=== PATIENT | male | born 1995 | race Caucasian/White ===

== ENCOUNTER 2021-01-12 20:59 | Emergency (ER) | payer SELFPAY ==
[2021-01-12 21:36] VITALS: BP 112/56; PULSE 77; RESP 16; TEMP 37.1; O2SAT 99; BMI 22.8
--- NOTE | 2021-01-12 22:36 | PC.NURSE ---
PT CALLS OUT. STATES HEY IS ANYONE GOING TO COME? IT'S BEEN 15MINUTES. EXPLAINED TO PATIENT THAT THE DOCTOR WILL BE IN. HE IS WITH OTHER PATIENTS RIGHT NOW.
--- NOTE | 2021-01-12 22:56 | ED.SKABFB ---
HPI - Skin/Abscess/Foreign Bdy General Chief complaint: Skin/Abscess/Foreign Body Stated complaint: BUMP ON HEAD Time Seen by Provider: 01/12/21 22:54 Source: patient Mode of arrival: ambulatory Limitations: no limitations History of Present Illness HPI narrative: States lump to the crown of the head for past 1.5 yrs here in the past for same states this area is tender and uncomfortable. Onset (ago): year(s) Tetanus up to date: yes Location: head Severity: mild Pain Consistency: intermittent Relieving factors: none Exacerbating factors: none Context: none Associated symptoms: denies other symptoms Treatments prior to arrival: none Related Data Allergies Allergy/AdvReac Type Severity Reaction Status Date / Time No Known Allergies Allergy Verified 01/12/21 21:36 Review of Systems Review of Systems: Constitutional: No Weight loss, No Fever, No Chills, No Night Sweats, No Fatigue, No Malaise ENT/Mouth: No Hearing loss, No Ear Pain, No Nasal Congestion, No Sinus Pain, No Hoarseness, No sore throat, No Rhinorrhea, No Swallowing Difficulty Eyes: No Eye Pain, No Swelling, No Redness, No Foreign Body, No Discharge, No Vision Changes Cardiovascular: No Chest Pain, No SOB, No Dyspnea on Exertion, No Orthopnea, No Edema, No Palpitations Respiratory: No Cough, No Sputum, No Wheezing, No Smoke Exposure, No Dyspnea Gastrointestinal: No Nausea, No Vomiting, No Diarrhea, No Constipation, No abdominal Pain, No Hematochezia, No Melena Genitourinary: no irregular bleeding, No Dysuria, No Urinary Frequency, No Hematuria, No Urinary Incontinence, No Urgency, No Flank Pain, No Urinary Flow Changes, No Hesitancy Musculoskeletal: No joint pain, No Myalgias, No Joint Swelling Skin: No Skin Lesions, No rash Neuro: No Weakness, No Numbness, No Paresthesias, No Loss of Consciousness, No Dizziness, No Headache Psych: No Social Issues Heme/Lymph: No Bruising, No Bleeding,No Lymphadenopathy Endocrine: No Polyuria, No Polydipsia, No Temperature Intolerance Yes all other systems are reviewed and are negative [facility] Past Medical History Medical History No known health problems Social History Social History Advance Directives: No Advance Directives Information Provided: No Physical Exam Vital Signs: Vital Signs: Last Vital Signs Temp 98.7 F 01/12/21 21:36 Pulse 77 01/12/21 21:36 Resp 16 01/12/21 21:36 BP 112/56 L 01/12/21 21:36 Pulse Ox 99 01/12/21 21:36 Body Mass Index 22.8 Reviewed Const: General: cooperative and healthy appearing; No acute distress or intoxicated appearing Nutritional Appearance: average body habitus Orientation/consciousness: patient oriented x3 HENMT: Head: Yes normal to inspection Head images: 1. 0.5 cm meter slightly indurated area just below the scalp consistent with pilar cyst. No erythema, discharge, crepitus. Ears: hearing grossly normal bilaterally Neck: Neck: Yes normal visual inspection, No positive Brudzinski's sign, No positive Kernig's sign and No tender Thyroid: Thyroid normal Chest: Chest palpation & inspection: normal inspection of the chest Resp: Effort & Inspection: normal respiratory effort : General: Yes no CVA tenderness Back/Spine/Pelvis: Back: no CVA tenderness Skin: General skin exam: no rashes or lesions noted Neuro: General: patient oriented x3 Extrem: General: Yes normal to inspection Course Course Course Narrative: Will follow-up with general surgery for possible obstruction and biopsy. MDM - Skin/Abscess/Foreign Bdy Lab Data Labs: Lab Results 01/12/21 Range/Units 22:53 POC Glucose 101 (60-115) mg/dL Discharge Plan Discharge Clinical Impression: Pilar cyst Patient Disposition: Home, Self-Care Instructions: Cyst (ED) Additional Instructions: Follow-up with general surgery to have this extracted Follow-up with your primary care doctor as discussed The concerns since symptoms Thank you Referrals: Edgar Mcmanus MD [Physician] - 2 weeks Interventions: ED Discharge Assessment Last Done: 01/12/21 23:11 Discharge Date/Time: 01/12/21 23:12
[2021-01-12 22:57] LABS: Glucose, Whole Blood 101 mg/dL (60-115)
== END 2021-01-12 23:12 | disposition home or self-care (01) ==
PROVIDERS: Emergency Provider Internal Medicine
DX: L72.11 Pilar cyst (principal)
CPT/HCPCS: 82947; 99284

== ENCOUNTER 2022-07-21 23:54 | Emergency (ER) | payer SELFPAY ==
[2022-07-22 00:08] VITALS: BP 132/90; PULSE 70; RESP 18; TEMP 36.4; O2SAT 98; BMI 24.3
[2022-07-22 02:00] VITALS: BP 130/85; PULSE 58; RESP 16; TEMP 36.5; O2SAT 98
--- NOTE | 2022-07-22 02:11 | ED_ITS ---
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 Related Data Allergies Allergy/AdvReac Type Severity Reaction Status Date / Time No Known Allergies Allergy Verified 01/12/21 21:36 Review of Systems Review of Systems: All other systems are reviewed and are negative Constitutional: Reports as per HPI and Reports no additional constitutional complaints Eyes: Reports as per HPI and Reports no additional eye complaints Reports system reviewed and no additional complaints, except as documented Cardiovascular: Reports as per HPI and Reports no additional cardiovascular complaints Respiratory: Reports as per HPI and Reports no additional respiratory complaints Gastrointestinal: Reports as per HPI and Reports no additional gastrointestinal complaints Genitourinary: Reports no additional female genitourinary complaints Musculoskeletal: Reports no additional musculoskeletal complaints Skin/Breast: Reports system reviewed and no additional complaints, except as docu Psychiatric: Reports no additional psychiatric complaints Endocrine: Reports no additional endocrine complaints Hematologic/Lymphatic: Reports no additional hematologic/lymphatic complaints Allergic/Immunologic: Reports no additional allergic/immunologic complaints Reports system reviewed and no additional complaints, except as documented and Reports Abnormal speech present [facility] Past Medical History Medical History No known health problems Social History Social History Advance Directives: No Physical Exam ED Vital Signs: Vital Signs - 24 hr 07/22/22 00:08 07/22/22 02:00 Temperature 97.6 F 97.7 F Pulse Rate 70 58 Respiratory Rate 18 16 Blood Pressure 132/90 H 130/85 Pulse Oximetry 98 98 Oxygen Delivery Method Room Air Room Air BMI result Body Mass Index 24.3 Vital signs have been reviewed as appeared to be correct. Blood pressure normal. Heart rate normal. Respiration rate normal. Temperature normal. Oxygen saturation normal. Appearance: Alert. Oriented X3. No acute distress. Head: Normal external exam. Normocephalic. Atraumatic. No Monroe signs noted. No raccoon eyes noted Eyes: PERRLA. EOMI. Conjunctiva and sclera normal. Eyelids normal. ENT: TM's Normal. Pharynx normal. Uvula midline. Moist mucous membranes. No trismus noted. No drooling noted. No muffled voice noted. Neck: Normal inspection. Neck supple. FROM. No adenopathy. Thyroid Normal. No meningeal signs. No neck mass noted. CVS: Normal heart rate and rhythm. Heart sound normal. No murmurs noted. Pulses normal throughout. Respiratory: No respiratory distress. Painless inspiration. Breath sounds normal. No wheezes/rales/rhonchi noted. Chest nontender. No accessory muscle usage noted or decreased air movement noted. Abdomen: Soft and nontender. Bowel sounds normal in all 4 quadrants. No distention noted. No organomegaly noted. No visible injury noted. Back: No CVA tenderness. Full range of motion noted. Skin: Skin warm and dry. Normal skin color. Normal skin turgor. No rashes/lesions/lacerations noted. Extremities: Bilateral palms skin thickening with white discoloration of the skin Cranial nerve exam: II-XII are grossly intact No motor deficit. No sensory deficit. Reflexes normal. Course Course Course Narrative: Chemical dermatitis of both hands after using paint removed without a protective gloves, case discussed with poison control the only recommendation is soaking both hand in warm water for long time. Discharge Plan Discharge Clinical Impression: Chemical dermatitis Patient Disposition: Home, Self-Care Instructions: Chemical Skin Burn (ED) Additional Instructions: Soak both and in a warm water for as long as he can 3 times a day until both palms soften Referrals: Physician,Unknown J [Primary Care Provider] - Stand Alone Forms: Work/School Release
--- NOTE | 2022-07-22 02:35 | PC.NURSE ---
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 pt offered warm water and soap to wash hands in ED, pt declined.
== END 2022-07-22 02:51 | disposition home or self-care (01) ==
PROVIDERS: Emergency Provider Emergency Medicine
DX: L24.5 Irritant contact dermatitis due to other chemical products (principal)
CPT/HCPCS: 99282; 99283

== ENCOUNTER 2024-02-07 10:11 | Emergency (ER) | payer OTHER, SELFPAY ==
[2024-02-07 10:42] VITALS: BP 119/59; PULSE 81; RESP 18; TEMP 36.6; O2SAT 95; BMI 23.7
[2024-02-07 11:13] LABS: IDNOW Serial# 08D9AD1C; Strep A Nucleic Acid Positive (Negative)
--- NOTE | 2024-02-07 11:28 | ED_ITS ---
HPI - General Adult General Chief complaint: General Medical Stated complaint: Tonsil infection ? Time Seen by Provider: 02/07/24 11:28 Source: patient Mode of arrival: ambulatory Limitations: no limitations History of Present Illness ED Provider: Vicky Dwyer PA-C HPI narrative: Patient is a 29 year old assigned male at with no reported medical history presenting to the emergency department today with a sore throat. Patient states that over the last 3 days he has had a sore throat that is getting progressively worse. Patient denies any dizziness, lightheadedness, abdominal pain, nausea, vomiting, fever, chills, blurry vision, double vision, loss of vision, chest pain, difficulty breathing, shortness of breath, back pain, night sweats, pain with urination, increased urinary frequency, increased urinary urgency, blood in his urine or stool, syncope or a near syncopal episode, recent trauma or falls, bowel incontinence, bladder incontinence, bowel retention, bladder retention, or any other complaints at this time. Onset (ago): day(s) (3) Severity: mild Severity scale (1-10): 4 Quality: aching and dull Pain Consistency: constant Relieving factors: none Exacerbating factors: none Associated symptoms: denies other symptoms Treatments prior to arrival: none Related Data Previous Rx's ?Medication ?Instructions ?Recorded penicillin V potassium 500 mg 500 mg PO BID 10 days #20 tabs 02/07/24 tablet amoxicillin 875 mg-potassium 1 tab PO Q12H #20 tabs 02/08/24 clavulanate 125 mg tablet acetaminophen 500 mg tablet 500 mg PO Q6H PRN pain #30 tabs 02/09/24 (Tylenol Extra Strength) ibuprofen 600 mg tablet 600 mg PO Q6H PRN pain #30 tabs 02/09/24 Allergies Allergy/AdvReac Type Severity Reaction Status Date / Time No Known Allergies Allergy Verified 02/09/24 12:45 Review of Systems Constitutional: Constitutional: Reports no additional constitutional complaints, Denies chills, Denies fever(s) and Denies night sweats Eyes: Eyes: Reports no additional eye complaints, Denies blurry vision, Denies change in vision, Denies diplopia, Denies eye discharge, Denies loss of vision and Denies eye pain ENT: Denies dizziness and Reports sore throat Cardiovascular: Cardiovascular: Reports no additional cardiovascular complaints, Denies chest pain, Denies lightheadedness, Denies Loss of Consciousness and Denies dyspnea Respiratory: Respiratory: Reports no additional respiratory complaints and Denies dyspnea Gastrointestinal: Gastrointestinal: Reports no additional gastrointestinal complaints, Denies abdominal pain, Denies melena, Denies hematochezia, Denies change in bowel habits and Denies change in stool character Genitourinary: Genitourinary: Reports no additional male genitourinary complaints, Denies hematuria, Denies oliguria, Denies difficulty urinating, Denies dysuria, Denies urinary frequency, Denies urinary hesitancy, Denies u rinary incontinence and Denies urinary urgency Musculoskeletal: Musculoskeletal: Reports no additional musculoskeletal complaints, Denies numbness and Denies tingling Neurologic: Denies dizziness, Denies loss of vision, Denies numbness and Denies tingling Psychiatric: Psychiatric: Reports no additional psychiatric complaints Endocrine: Endocrine: Reports no additional endocrine complaints Hematologic/Lymphatic: Hematologic/Lymphatic: Reports no additional hematologic/lymphatic complaints Allergic/Immunologic: Allergic/Immunologic: Reports no additional allergic/immunologic complaints PMFSH Past Medical History Attestation statement: The following information was validated with the patient. Source: old records reviewed and nursing notes reviewed Medical History No known health problems Social History Social History Advance Directives: No Physical Exam ED Vital Signs: Vital Signs - 24 hr 02/07/24 10:42 02/07/24 11:33 Temperature 97.8 F 97.8 F Pulse Rate 81 81 Respiratory Rate 18 18 Blood Pressure 119/59 L 119/59 L Pulse Oximetry 95 97 Oxygen Delivery Method Room Air Room Air BMI result Body Mass Index 23.7 Const General: cooperative, no acute distress, alert and awake Nutritional Appearance: well nourished Orientation/consciousness: patient oriented x3 Limitations: no limitations HENMT Head: Yes normal to inspection and Yes atraumatic Ears: hearing grossly normal bilaterally and external ears normal General nose exam: Normal external nose present, no nasal discharge noted and no epistaxis Face and sinus: Yes normal facial exam, No abrasion and No laceration Mouth: Normal oral and palatal mucosa present, no drooling and no muffled voice Throat: Yes uvula midline and Yes abnormal tonsil (bilateral erythema and swelling) Eyes General: appearance normal, both eyes and all related structures Periorbital: periorbital findings normal Eyelids: Yes eyelids normal Conjunctivae: conjunctivae normal Pupils: Equal, round and reactive pupils present EOM: EOMs intact bilaterally Neck Neck: Yes normal visual inspection, Yes full ROM and Yes no lymphadenopathy Chest Chest palpation & inspection: normal inspection of the chest Resp Effort & Inspection: normal respiratory effort and able to speak in complete sentences GI Inspection: Yes normal to inspection Neuro General: patient oriented x3 and moves all extremities Cranial nerves: Yes Equal, round and reactive pupils present Cognition (Neuro): normal cognition Motor exam (neuro): 5/5 motor strength present throughout Sensory Exam: Normal double simultaneous stimulation for sensation Coordination: [id number] test normal Extrem General: Yes normal to inspection, Yes full ROM and Yes capillary refill normal Psych Appearance: grossly normal Mental Status: mental status grossly normal Affect: normal affect Attitude: cooperative Thought process: Normal thought process present Thought content: Normal thought content present Insight: Good insight present (Psych) Medications Administered Discontinued Medications Generic Name Dose Route Start Last Admin Trade Name Freq PRN Reason Stop Dose Admin Dexamethasone Sodium Phosphate 10 mg 02/07/24 11:28 02/07/24 11:33 Dexamethasone Sod Phosphate 10 Mg/Ml Vial PO 02/07/24 11:29 10 mg ONCE ONE Administration Medical Decision Making Medical Decision Making [facility] Narrative: Patient is a 29 year old assigned male at with no reported medical history presenting to the emergency department today with a sore throat. Patient's physical exam showed bilateral tonsilar swelling and erythema but the uvula appeared normal and no evidence of a SUPERVISOR FILTRATION. Patient's strep test was positive. I explained my physical exam findings as well as all test results to the patient. I answered all questions asked by the patient. Patient received PO Decadron while in the department which he stated helped his symptoms significantly. I stressed the importance of the patient taking his medication as prescribed. I stressed the importance of the patient following up with his primary care provider. I stressed the importance of the patient returning to the emergency department immediately if his symptoms were to worsen or if he were to develop any dizziness, shortness of breath, difficulty breathing, chest pain, blurry vision, loss of vision, nausea, vomiting, abdominal pain, fever, chills, back pain, or any other complaints. Patient verbalized agreement and understanding with this treatment plan and discharge. Differential Diagnosis Differential Diagnoses: The differential diagnosis associated with the presentation includes Strep pharyngitis Sore throat Admission/Observation Consideration of admission/observation: Escalation of care including admission/observation considered Patient would have been admitted to the hospital had his work up had any findings where hospital admission was appropriate and his clinical presentation warranted hospital admission. Lab Data [facility] Lab Attestation statement: I reviewed the patient's lab results. My interpretation of these results are in the [facility] Rationale portion of this note. Labs: Lab Results 02/07/24 Range/Units 11:01 S. pyogenes GrpA JEIMY Positive A (Negative) Prescription Management I considered prescription management with: Antibiotic (patient prescribed an antibiotic for his strep pharyngitis) Critical Care Time Critical Care Time Critical Care Time: No Discharge Plan Discharge Clinical Impression: Strep pharyngitis Patient Disposition: Home, Self-Care Instructions: Strep Throat (DC) Additional Instructions: Follow up with your primary care provider. Return to the emergency department immediately if your symptoms worsen or if you develop any dizziness, shortness of breath, difficulty breathing, chest pain, blurry vision, loss of vision, nausea, vomiting, abdominal pain, fever, chills, back pain, or any other complaints. Prescriptions: New penicillin V potassium 500 mg tablet 500 mg PO BID 10 Days Qty: 20 0RF No Action amoxicillin-pot clavulanate 875-125 mg tablet 1 tab PO Q12H Qty: 20 0RF ibuprofen 600 mg tablet 600 mg PO Q6H PRN (Reason: pain) Qty: 30 0RF acetaminophen [Tylenol Extra Strength] 500 mg tablet 500 mg PO Q6H PRN (Reason: pain) Qty: 30 0RF Referrals: [facility] [place] Family Medicine [Provider Group] (Call to establish and follow up with a primary care provider. If you already have a primary care provider, please follow up with them.) [facility] [place] Primary CareMelissa [Provider Group] [facility] [place] Primary CareBrenda [Provider Group] Stand Alone Forms: Work/School Release Interventions: ED Discharge Assessment Last Done: 02/07/24 11:33 Discharge Date/Time: 02/07/24 11:34 Print Language: Cymraes
[2024-02-07 11:33] VITALS: BP 119/59; PULSE 81; RESP 18; TEMP 36.6; O2SAT 97
[2024-02-07] MEDS: dexAMETHasone sod phosphate 10 MG/ML VIAL PO (11:33)
--- NOTE | 2024-02-07 11:35 | PC.NURSE ---
Eval by ZULEMA, medicated per NOV by nupur flopatrick RN, cleared for dc home.
== END 2024-02-07 11:34 | disposition home or self-care (01) ==
PROVIDERS: Emergency Provider Emergency Medicine
DX: J02.0 Streptococcal pharyngitis (principal)
CPT/HCPCS: 87651; 99282; 99283; J1100

== ENCOUNTER 2024-02-08 18:04 | Emergency (ER) | payer OTHER, SELFPAY ==
--- NOTE | ~2024-02-08 | CT_ITS ---
EXAMINATION: CT SOFT TISSUE NECK WITH CONTRAST CLINICAL INFORMATION: Sore throat. COMPARISON: No relevant prior imaging. TECHNIQUE: Following the intravenous administration of 100 mL of Omnipaque 350 intravenous contrast, helical imaging was performed in the axial plane with generation of coronal and sagittal reformatted images. This CT examination was performed using dose optimization techniques as appropriate, variously including the following: *Automated exposure control *Adjustment of mA and/or kV according to patient size (this includes techniques or standardized protocols for targeted exams where dose is matched to indication/reason for exam; i.e. extremities or head) *Use of iterative reconstruction technique DLP: 412 mGy-cm FINDINGS: There is a peripherally enhancing fluid collection located within the left parapharyngeal space measuring approximately 2.5 cm in maximal transaxial dimension best visualized on axial image 43 of 128 series 2. There are a few symmetrically enlarged enhancing level II cervical lymph nodes, none of which demonstrate evidence of suppuration. There is symmetric enhancement within the internal jugular veins with no evidence of septic thrombophlebitis. Retromaxillary fat is preserved. Living Skills Advisor spaces are symmetric. The parotid and submandibular glands are normal. The tongue base and epiglottis are normal. Preepiglottic fat is preserved. Glottic and subglottic airways are patent. The thyroid gland is normal and the remainder of the visualized visceral soft tissues are normal. Lung apices are clear. The aortic arch apex is normal. Cervical carotid and vertebral arteries are grossly patent. No acute osseous finding. Specifically no worrisome lytic or blastic osseous lesion. Grossly no spinal canal compromise. The skull base is intact. No mastoid middle ear effusion. There are a few small retention cysts within the left maxillary sinus. Otherwise no active paranasal sinus disease. Limited visualization of the intracranial anatomy reveals no abnormal finding. Specifically no midline shift or hydrocephalus. CT/CT soft tissue neck w IV con IMPRESSION: There is a left peritonsillar abscess measuring approximately 2.5 cm in maximal transaxial dimension. There are a few symmetrically enlarged enhancing level II cervical lymph nodes, none of which demonstrate evidence of suppuration. No evidence of septic thrombophlebitis.
[2024-02-08 18:13] VITALS: BP 120/78; PULSE 76; RESP 16; TEMP 36.8; O2SAT 99; BMI 24.3
--- NOTE | 2024-02-08 18:13 | ED_ITS ---
HPI - General Adult General Chief complaint: Upper Respiratory Symptoms Stated complaint: throat pain Time Seen by Provider: 02/08/24 18:26 Source: patient, RN notes reviewed and old records reviewed Mode of arrival: ambulatory Limitations: no limitations History of Present Illness ED Provider: Demario JEFFERY narrative: 29-year-old male presents for evaluation of a sore throat Patient was seen here yesterday and diagnosed with strep pharyngitis. He was started on penicillin V potassium He reports being compliant with the medication. He states immediately after leaving his symptoms had improved somewhat but states that now he is having worsening pain with swallowing He is still able to drink and reports that he is able to eat popsicles Patient reports he gets recurrent throat infections about once per year He reports he is seen ENT in the past and they told him they would not remove his tonsils until ?I have 3 or 4 infections per year. ? Related Data Previous Rx's ?Medication ?Instructions ?Recorded penicillin V potassium 500 mg 500 mg PO BID 10 days #20 tabs 02/07/24 tablet amoxicillin 875 mg-potassium 1 tab PO Q12H #20 tabs 02/08/24 clavulanate 125 mg tablet Allergies Allergy/AdvReac Type Severity Reaction Status Date / Time No Known Allergies Allergy Verified 02/08/24 18:16 Review of Systems 2 Constitutional: Constitutional: Denies body ache(s), Denies chills, Denies fever(s) and Denies headache(s) ENT: Denies headache(s), Reports odynophagia, Reports sore throat, Denies throat swelling and Denies tongue swelling Cardiovascular: Cardiovascular: Denies chest pain and Denies dyspnea Respiratory: Respiratory: Denies cough and Denies dyspnea Gastrointestinal: Gastrointestinal: Denies abdominal pain, Reports odynophagia and Denies vomiting Musculoskeletal: Musculoskeletal: Denies back pain Integumentary/Breasts: Skin/Breast: Denies rash Neurologic: Denies headache(s) Allergic/Immunologic: Allergic/Immunologic: Denies throat swelling and Denies tongue swelling PMFSH Past Medical History Medical History No known health problems Social History Social History Advance Directives: No Advance Directives Information Provided: No Physical Exam ED Vital Signs: Vital Signs - 24 hr 02/08/24 18:13 02/08/24 19:26 02/08/24 21:39 Temperature 98.3 F 99.0 F 97.9 F Pulse Rate 76 64 64 Respiratory Rate 16 16 16 Blood Pressure 120/78 101/60 115/67 Pulse Oximetry 99 97 97 Oxygen Delivery Method Room Air Room Air Room Air BMI result Body Mass Index 24.3 Const General: healthy appearing, comfortable, no acute distress, alert and awake Nutritional Appearance: well nourished Orientation/consciousness: patient oriented x3 HENMT Other: Patient has bilateral marked tonsillar hypertrophy with exudates left greater than right. There was no obvious peritonsillar abscess Head: Yes normocephalic and Yes atraumatic Eyes Eyelids: Yes eyelids normal Conjunctivae: conjunctivae normal Sclerae: sclerae normal Corneas: corneas normal Pupils: Equal, round and reactive pupils present EOM: EOMs intact bilaterally Neck Neck: Yes full ROM Resp Effort & Inspection: normal respiratory effort, able to speak in complete sentences, no audible wheezes and not labored Auscultation: clear to auscultation bilaterally GI Inspection: No distended Palpation (GI): Soft to palpation, not firm, nontender, no guarding and not rigid Skin General skin exam: elasticity normal Neuro General: patient oriented x3 Cranial nerves: Yes Equal, round and reactive pupils present and Yes Bilaterally intact EOM present Cognition (Neuro): normal cognition Extrem Other: Moving all extremities well without any obvious deformities Course Course Course Narrative: This is an RME done by MILTON Paz: Additional HPI, ROS, PE not included below will be deferred to primary provider. 29 year old male who denies any pmh presents with worsening throat pain. Patient was seen in the ED yesterday for strep pharyngitis and prescribed Penicililin and states the pain has not subsided. States swelling initially decreased and then got worse. Changes in voice, difficulty in swallowing, difficulty eating. Strep positive yesterday. Appearance: Alert.? Oriented X3.? No acute cardiopulmonary distress distress.? Head: Normocephalic, atraumatic, no step-offs or deformities ENT: Swollen tonsils. Uvula midline. Very scant exudate to the right tonsil.?External ears normal, TMs normal bilaterally and EAC's normal. No pain with manipulation of external ears bilaterally. No mastoid tenderness. Neck: Normal inspection.? Neck supple.? CVS: Pulses normal.? Respiratory: No respiratory distress.? Abdomen: Soft and nontender.? Skin: ? Normal skin color. Neuro: Oriented X 3.? No motor deficit.? No sensory deficit. Reevaluation(s) Reevaluation #1: Left peritonsillar abscess was drained with about 3 cc of purulent aspirate removed. The patient tolerated the procedure well, there were no complications. We will change the patient's antibiotic to Augmentin and he will be discharged to follow-up outpatient with Dr. Navarrete Time: 21:37 Medications Administered Discontinued Medications Generic Name Dose Route Start Last Admin Trade Name Freq PRN Reason Stop Dose Admin Dexamethasone Sodium Phosphate 10 mg 02/08/24 18:44 02/08/24 19:08 Dexamethasone Sod Phosphate 10 Mg/Ml Vial IVPUSH 02/08/24 18:45 10 mg ONCE ONE Administration Sodium Chloride 1,000 mls @ 999 mls/hr 02/08/24 18:45 02/08/24 20:14 Ns IV 02/08/24 19:45 Infused .Q1H1M HAYDEN Infusion Iohexol 85 ml 02/08/24 20:04 02/08/24 20:04 Iohexol 350 Mg/Ml 100 Ml Infus..Btl IV 02/08/24 20:05 85 ml ONCE ONE Administration Ketorolac Tromethamine 30 mg 02/08/24 18:44 02/08/24 19:08 Ketorolac Tromethamine 30 Mg/Ml Vial IVPUSH 02/08/24 18:45 30 mg ONCE ONE Administration Lidocaine HCl 15 ml 02/08/24 20:39 02/08/24 21:34 Lidocaine Hcl Viscous 2 % 15 Ml Solution MUCOUS MEM 02/08/24 20:40 15 ml ONCE ONE Administration Lidocaine HCl 5 ml 02/08/24 20:39 02/08/24 21:34 Lidocaine Hcl 1 % Mpf 5 Ml Vial INFILTRATI 02/08/24 20:40 5 ml ONCE ONE Administration Procedures Abscess I/D Site: other (Peritonsillar) Side (if applicable): left Local Anesthetic: lidocaine 1% Amount of anesthesia used (mL): 2 Technique: needle aspiration Amount of fluid expressed (mL): 3 Sent for culture/gram staining?: No Irrigation: No Medical Decision Making Medical Decision Making MDM Narrative: 29-year-old male presents for evaluation of sore throat, he was diagnosed with strep pharyngitis yesterday and has been compliant with his medications. Given the marked tonsillar hypertrophy, plan for CT soft tissue neck to evaluate for soft tissue abscess Differential Diagnosis Differential Diagnoses: The differential diagnosis associated with the presentation includes Pharyngitis Peritonsillar abscess Strep throat Mononucleosis Lab Data 02/08/24 19:34 02/08/24 19:34 Labs: Lab Results 02/08/24 Range/Units 19:34 WBC 15.4 H (4.8-10.8) X10*3/uL RBC 4.67 (4.60-5.80) X10*6/uL Hgb 14.7 (14.0-18.0) g/dl Hct 41.7 L (42.0-52.0) % MCV 89.3 (80.0-98.0) fL MCH 31.5 (27.0-33.0) pg MCHC 35.3 (31.0-36.0) g/dl RDW 11.6 (11.0-16.0) % Plt Count 273 (160-400) X10*3/uL MPV 8.5 L (9.4-12.4) fL Immature Gran % (Auto) 0.3 (0.0-0.4) % Neut % (Auto) 76.7 H (45-73) % Lymph % (Auto) 12.0 L (20-40) % [place] % (Auto) 10.2 (2-11) % Eos % (Auto) 0.5 (0-4) % Baso % (Auto) 0.3 (0-2) % Lymph # (Auto) 1.9 (1.2-4.9) X10*3/uL [place] # (Auto) 1.6 H (0.1-1.2) X10*3/uL Eos # (Auto) 0.1 (0.0-0.4) X10*3/uL Baso # (Auto) 0.0 (0.0-0.2) X10*3/uL Abs Immat Gran (auto) 0.05 H (0.00-0.03) X10*3/uL Absolute Neuts (auto) 11.8 H (2.0-8.3) x10*3/uL Absolute Nucleated RBC 0.000 (0.0-0.012) X10*3/uL Nucleated RBC % (auto) 0.0 (0.0-0.2) /100WBC Smear Tech's Comments VERIFIED Sodium 144 (135-145) mmol/L Potassium 3.6 (3.3-5.1) mmol/L Chloride 106 (96-108) mmol/L Carbon Dioxide 23 (22-29) mmol/L Anion Gap 19 (12-20) BUN 13 (9-16) mg/dL Creatinine 0.84 (0.5-1.4) mg/dL Estim Creat Clear Calc 126.6 Estimated GFR > 60 Random Glucose 105 (60-115) mg/dL Calcium 9.1 (8.4-10.2) mg/dL Monoscreen Negative (Negative) Discharge Plan Discharge Clinical Impression: Strep throat, Abscess, peritonsillar Patient Disposition: Home, Self-Care Instructions: Peritonsillar Abscess (ED) Additional Instructions: Stop taking the penicillin. Use Augmentin twice daily for the next [address] Navarrete's office tomorrow morning to schedule follow-up. Return for new or worsening symptoms Prescriptions: New amoxicillin-pot clavulanate 875-125 mg tablet 1 tab PO Q12H Qty: 20 0RF No Action penicillin V potassium 500 mg tablet 500 mg PO BID 10 Days Qty: 20 0RF Referrals: Jayden Kessler [Physician] - (Left peritonsillar abscess follow-up. Drained in the ED) Print Language: Tamazight
[2024-02-08] MEDS: 0.9 % Sodium Chloride 1,000 ML 999 ML IV (19:07)
[2024-02-08] MEDS: Ketorolac Tromethamine 30 MG/ML VIAL IVPUSH (19:08)
[2024-02-08] MEDS: dexAMETHasone sod phosphate 10 MG/ML VIAL IVPUSH (19:08)
--- NOTE | 2024-02-08 19:12 | PC.NURSE ---
assumed care at 1900, pt assessed, c/o throat pain, pt speaking in full senteces, able to hold secretions, medicated per MAR
[2024-02-08 19:26] VITALS: BP 101/60; PULSE 64; RESP 16; TEMP 37.2; O2SAT 97
[2024-02-08 19:40] LABS: Basophils Percent Auto 0.3 % (0-2); Eosinophils Absolute Auto 0.1 X10*3/uL (0.0-0.4); Eosinophils Percent Auto 0.5 % (0-4); Hematocrit 41.7 % (42.0-52.0); Hemoglobin 14.7 g/dl (14.0-18.0); Imm Gran Abs Auto 0.05 X10*3/uL (0.00-0.03); Imm Gran Pct Auto 0.3 % (0.0-0.4); Lymphocytes Absolute Auto 1.9 X10*3/uL (1.2-4.9); MANUAL DIFF FLAG SCAN; Mean Corpuscular HGB Conc 35.3 g/dl (31.0-36.0); Mean Corpuscular Hemoglobin 31.5 pg (27.0-33.0); Mean Corpuscular Volume 89.3 fL (80.0-98.0); Mean Platelet Volume 8.5 fL (9.4-12.4); Monocytes Absolute Auto 1.6 X10*3/uL (0.1-1.2); Monocytes Percent Auto 10.2 % (2-11); Neutrophils Absolute Auto 11.8 x10*3/uL (2.0-8.3); Neutrophils Percent Auto 76.7 % (45-73); Platelet Count 273 X10*3/uL (160-400); Red Blood Count 4.67 X10*6/uL (4.60-5.80); Red Cell Distribution Width 11.6 % (11.0-16.0); SCAN SMEAR FLAG 1; White Blood Count 15.4 X10*3/uL (4.8-10.8)
[2024-02-08 19:52] LABS: Anion Gap 19 (12-20); Blood Urea Nitrogen 13 mg/dL (9-16); Calcium 9.1 mg/dL (8.4-10.2); Carbon Dioxide 23 mmol/L (22-29); Chloride 106 mmol/L (96-108); Creatinine Clr Calc Pharmacy 126.6; Estimated Glomerular Filt Rate > 60; Glucose Random 105 mg/dL (60-115); Potassium 3.6 mmol/L (3.3-5.1); Sodium 144 mmol/L (135-145)
[2024-02-08 19:56] LABS: Monotest Negative (Negative)
[2024-02-08] MEDS: iohexoL 350 MG/ML 100 ML INFUS..BTL 85 ML IV (20:04)
[2024-02-08 20:26] LABS: SLIDE REVIEW VERIFIED
--- NOTE | 2024-02-08 21:05 | PC.NURSE ---
pt ambulated to the BR , denies any complaints
[2024-02-08] MEDS: Lidocaine HCl 1 % MPF 5 ML VIAL INFILTRATI (21:34)
[2024-02-08] MEDS: Lidocaine HCl Viscous 2 % 15 ML SOLUTION MUCOUS MEM (21:34)
[2024-02-08 21:39] VITALS: BP 115/67; PULSE 64; RESP 16; TEMP 36.6; O2SAT 97
[2024-02-08] MEDS: Amoxicillin/Potassium Clav 875 MG TABLET PO (21:53)
[2024-02-08 21:59] VITALS: BP 115/67; PULSE 64; RESP 16; TEMP 36.6; O2SAT 97
== END 2024-02-08 22:00 | disposition home or self-care (01) ==
PROVIDERS: Physician Assistant; Emergency Provider Emergency Medicine
DX: J02.0 Streptococcal pharyngitis (principal); J36 Peritonsillar abscess
CPT/HCPCS: 10160; 36415; 70491; 80048; 85025; 86308; 96361; 96374; 96375; 99284; J1100; J1885; Q9967

== ENCOUNTER 2024-02-09 11:36 | Emergency (ER) | payer OTHER, SELFPAY ==
--- NOTE | ~2024-02-09 | XR_ITS ---
EXAMINATION: XR RIBS, RIGHT CLINICAL INFORMATION: Ribs on the right, pain COMPARISON: None available. TECHNIQUE: AP chest and 4 views of right rib cage FINDINGS: Lungs are clear cardiomediastinal silhouette is normal and there is no evidence of pleural effusion. Evaluation of right rib cage revealed mildly displaced fracture of ribs #11 along the posterior axillary line XR/XR ribs RT min 3V w CXR1V IMPRESSION: Fracture of ribs #11 on the right
[2024-02-09 12:43] VITALS: BP 107/68; PULSE 58; RESP 18; TEMP 36.5; O2SAT 99; BMI 24.3
--- NOTE | 2024-02-09 12:52 | ED.GENADULT ---
HPI - General Adult General Chief complaint: General Medical Stated complaint: fall 02/01, rib pain Time Seen by Provider: 02/09/24 14:19 Source: patient and RN notes reviewed Mode of arrival: ambulatory Limitations: no limitations History of Present Illness ED Provider: Terri Heard PA-C [facility] narrative: This is a 29-year-old male, with no known medical problems, who presents emergency room with complaints of right rib pain. Patient states that he had a mechanical fall last Tuesday and landed directly on his right rib. He was walking down steps and tripped landing directly on his right side. He immediately had pain in his right rib. He denies hitting his head or loss of consciousness. He states increasing with palpation overlying the area. No pleuritic pain. Denies taking any medications at home to treat his current symptoms. Denies abdominal pain, nausea, vomiting or diarrhea. No other complaints or concerns. MD complaint: Right rib pain Onset (ago): week(s) Radiation: non-radiation Quality: aching Pain Consistency: constant Relieving factors: none Exacerbating factors: none Associated symptoms: denies other symptoms Treatments prior to arrival: none Related Data Previous Rx's ?Medication ?Instructions ?Recorded penicillin V potassium 500 mg 500 mg PO BID 10 days #20 tabs 02/07/24 tablet amoxicillin 875 mg-potassium 1 tab PO Q12H #20 tabs 02/08/24 clavulanate 125 mg tablet acetaminophen 500 mg tablet 500 mg PO Q6H PRN pain #30 tabs 02/09/24 (Tylenol Extra Strength) ibuprofen 600 mg tablet 600 mg PO Q6H PRN pain #30 tabs 02/09/24 Allergies Allergy/AdvReac Type Severity Reaction Status Date / Time No Known Allergies Allergy Verified 02/09/24 12:45 Review of Systems Review of Systems: Yes all other systems are reviewed and are negative Constitutional: Constitutional: Reports as per [facility] Past Medical History Medical History No known health problems Social History Social History Advance Directives: No Physical Exam ED Vital Signs: Vital Signs - 24 hr 02/09/24 12:43 Temperature 97.7 F Pulse Rate 58 Respiratory Rate 18 Blood Pressure 107/68 Pulse Oximetry 99 Oxygen Delivery Method Room Air BMI result Body Mass Index 24.3 Const General: cooperative, comfortable and no acute distress Orientation/consciousness: patient oriented x3 Limitations: no limitations HENMT Head: Yes normal to inspection, Yes normocephalic and Yes atraumatic Ears: hearing grossly normal bilaterally General nose exam: Normal external nose present Face and sinus: Yes normal facial exam Mouth: Normal oral and palatal mucosa present, oropharynx normal and moist mucous membranes Throat: Yes posterior oropharynx normal Eyes General: appearance normal, both eyes and all related structures Eyelids: Yes eyelids normal Conjunctivae: conjunctivae normal Sclerae: sclerae normal Pupils: Equal, round and reactive pupils present EOM: EOMs intact bilaterally Neck Neck: Yes normal visual inspection, Yes full ROM and Yes no lymphadenopathy Lymphatic: no lymphadenopathy noted Chest Other: Tender palpation along the right anterior rib. No overlying bony step-off or deformity. No crepitus Chest palpation & inspection: normal inspection of the chest Resp Effort & Inspection: normal respiratory effort and able to speak in complete sentences Auscultation: clear to auscultation bilaterally, no crackles, no rales, no rhonchi and no wheezes Cardio Rate: regular rate Rhythm: regular rhythm Heart sounds: S1 normal heart sound present and S2 normal heart sound present GI Inspection: Yes normal to inspection Skin General skin exam: no rashes or lesions noted Trauma: no lacerations or abrasions Wounds: no wounds Neuro General: patient oriented x3 and moves all extremities Cranial nerves: Yes Equal, round and reactive pupils present Extrem General: Yes normal to inspection Right upper extremity: normal to inspection Left upper extremity: normal to inspection Right lower extremity: normal to inspection Left lower extremity: normal to inspection Course Course Course Narrative: This is an RME done by MILTON Paz: Additional HPI, ROS, PE not included below will be deferred to primary provider. 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 Denies head strike or LOC. Patient states he can feel the pain when I breathe and when I lay down Reports pain to palpation but no bruising or swelling. Denies sob, fever, chills, headache, dizziness. Reevaluation(s) Reevaluation #1: right rib #11 fracture, otherwise CXR without any evidence of pneumothorax or any other process. Discussed with pt, given incentive spirometer and return precautions. He understands and agrees with plan. Stable for d/c. Medical Decision Making Medical Decision Making MDM Narrative: This is a 29-year-old male presents emergency department with complaints of right rib pain x1 week. Patient had mechanical fall where he slipped and fell down 3 steps, landing on his right rib. He has had increased pain. No shortness a breath. On arrival, vital signs within normal limits. He is speaking full sentences under no acute distress. He does have tenderness palpation along the right anterior lateral ribs. Differential diagnoses include rib fracture, contusion, pneumothorax. Plan: X-ray right ribs Differential Diagnosis Differential Diagnoses: The differential diagnosis associated with the presentation includes See above Radiology Impression Discussion of test interpretation with radiology: I have reviewed the radiologist's reading. Radiologist Impression: XR/XR ribs RT min 3V w CXR1V IMPRESSION: Fracture of ribs #11 on the right Dictated By: Sharda Welch MD External Record Review External record reviewed: Inpatient record, Office record, Outpatient record, Prior outpatient labs, Prior outpatient radiology, Primary care record and Outside ED record Discharge Plan Discharge Clinical Impression: Right rib fracture Patient Disposition: Home, Self-Care Instructions: Rib Fracture (ED) Additional Instructions: You were seen in the ER for rib pain. You have a fracture along rib number 11. Please use incentive spirometer to prevent pneumonia. Alternate between ibuprofen and Tylenol as needed for pain. If any new or worsening symptoms occur, including but not limited to severe chest pain, shortness of breath, please return or go to your nearest emergency department for re-evaluation. Prescriptions: New ibuprofen 600 mg tablet 600 mg PO Q6H PRN (Reason: pain) Qty: 30 0RF acetaminophen [Tylenol Extra Strength] 500 mg tablet 500 mg PO Q6H PRN (Reason: pain) Qty: 30 0RF No Action penicillin V potassium 500 mg tablet 500 mg PO BID 10 Days Qty: 20 0RF amoxicillin-pot clavulanate 875-125 mg tablet 1 tab PO Q12H Qty: 20 0RF Interventions: ED Discharge Assessment Last Done: 02/09/24 16:50 Discharge Date/Time: 02/09/24 16:50 Print Language: Dominican
[2024-02-09 16:50] VITALS: BP 107/68; PULSE 58; RESP 18; TEMP 36.5; O2SAT 99
== END 2024-02-09 16:50 | disposition home or self-care (01) ==
PROVIDERS: Emergency Provider Emergency Medicine
DX: S22.31XA Fracture of one rib, right side, initial encounter for closed fracture (principal); W10.9XXA Fall (on) (from) unspecified stairs and steps, initial encounter; Y93.9 Activity, unspecified; Y92.9 Unspecified place or not applicable; Y99.9 Unspecified external cause status
CPT/HCPCS: 71101; 99282; 99283

== ENCOUNTER 2024-04-13 04:06 | Emergency (ER) | payer OTHER, SELFPAY ==
--- NOTE | ~2024-04-13 | CT_ITS ---
EXAMINATION: CT HEAD WITHOUT CONTRAST CLINICAL INFORMATION: Severe left-sided headache COMPARISON: None. TECHNIQUE: Multidetector volumetric imaging of the head was performed without intravenous contrast material. This CT examination was performed using dose optimization techniques as appropriate, variously including the following: *Automated exposure control *Adjustment of mA and/or kV according to patient size (this includes techniques or standardized protocols for targeted exams where dose is matched to indication/reason for exam; i.e. extremities or head) *Use of iterative reconstruction technique Dose: 729 mGy-cm FINDINGS: There is no evidence of acute intracranial hemorrhage or territorial infarction. No abnormal mass-effect or midline shift is seen. Rizzo to white matter differentiation is well preserved. No extra axial fluid collections. The ventricles are normal in size and configuration. There is no abnormal attenuation within the brain parenchyma. The soft tissues and osseous structures are normal. The sinuses and mastoid air cells are clear. CT/CT head/brain wo IV con IMPRESSION: No acute intracranial pathology.
[2024-04-13 04:08] VITALS: BP 124/62; PULSE 64; RESP 18; TEMP 36.5; O2SAT 97; BMI 24.3
[2024-04-13 04:54] VITALS: BP 91/48; PULSE 58; RESP 15; TEMP 36.6; O2SAT 97
--- NOTE | 2024-04-13 05:16 | ED.HA ---
HPI - Headache General Chief Complaint: Headache Stated Complaint: sharp pain in back of head Time Seen by Provider: 04/13/24 04:56 Source: patient Mode of arrival: ambulatory Limitations: no limitations History of Present Illness ED Provider: MAURA HPI Narrative: 29 yo male with no sig PMH he denies dizziness, n/v numbness, weakness, photophobia. He states that he has a lump that has been growing for some time on the back of his scalp and now this AM woke up with pain in that area. No trauma. No fevers. Headache is only in that area MD elicited complaint: headache Onset (ago): hour(s) (1) Onset description: suddenly Location: left and occipital Severity: moderate Quality & Timing: aching and dull Exacerbating factors: none Relieving factors: nothing Context: other (at growing lump site) Associated symptoms: none Treatments prior to arrival: none Related Data Previous Rx's ?Medication ?Instructions ?Recorded penicillin V potassium 500 mg 500 mg PO BID 10 days #20 tabs 02/07/24 tablet amoxicillin 875 mg-potassium 1 tab PO Q12H #20 tabs 02/08/24 clavulanate 125 mg tablet acetaminophen 500 mg tablet 500 mg PO Q6H PRN pain #30 tabs 02/09/24 (Tylenol Extra Strength) ibuprofen 600 mg tablet 600 mg PO Q6H PRN pain #30 tabs 02/09/24 Allergies Allergy/AdvReac Type Severity Reaction Status Date / Time No Known Allergies Allergy Verified 04/13/24 04:09 Review of Systems Review of Systems: Constitutional : No Fever, No Chills, No Fatigue ENT/Mouth : No sore throat, No Rhinorrhea Eyes: No Eye Pain, No Swelling, No Redness Cardiovascular : No Chest Pain, No SOB, No Dyspnea on Exertion Respiratory : No Cough, No Sputum Gastrointestinal : No Nausea, No Vomiting, No Diarrhea, No abdominal Pain Genitourinary : No Dysuria, No Urinary Frequency, No Hematuria, Musculoskeletal : No joint pain, No Myalgias, No Joint Swelling Skin : No Skin Lesions, No rash Neuro : No Weakness, No Numbness, No Dizziness, positive Headache Psych : No Anxiety/Panic, No Depression Heme/Lymph: No Bruising, No Bleeding,No Lymphadenopathy Endocrine : No Polyuria, No Polydipsia All other systems reviewed and are negative [facility] Past Medical History Attestation statement: The following information was validated with the patient. Source: old records reviewed Medical History No known health problems Social History Social History (Updated 04/13/24 @ 05:29 by Honey Levin DO) Patient Tobacco Use Status: Never used Tobacco Advance Directives: No Advance Directives Information Provided: Yes Do you have a plan to hurt others: No Plan Physical Exam Vital Signs: Vital Signs: Last Vital Signs Temp 97.9 F 04/13/24 04:54 Pulse 58 04/13/24 04:54 Resp 15 04/13/24 04:54 BP 91/48 L 04/13/24 04:54 Pulse Ox 97 04/13/24 04:54 O2 Del Method Room Air 04/13/24 04:54 BMI result Body Mass Index 24.3 Appearance: Alert. Oriented X3. No acute distress. Eyes: Pupils equal, round and reactive to light. ENT: Pharynx normal. L occipital parietal he notes a hard lump it feels like a bony protrusion to me I feel no other mass no lymphadenopathy Neck: Normal inspection. Neck supple. CVS: Normal heart rate and rhythm. Pulses normal. Respiratory: No respiratory distress. Breath sounds normal. Abdomen: Soft and nontender. Skin: Skin warm and dry. Normal skin color. Normal skin turgor. Extremities: No lower extremity edema. No calf ttp Neuro: Oriented X 3. No motor deficit. No sensory deficit. Medications Administered Discontinued Medications Generic Name Dose Route Start Last Admin Trade Name Freq PRN Reason Stop Dose Admin Acetaminophen 975 mg 04/13/24 05:06 04/13/24 05:28 Acetaminophen 325 Mg Tablet PO 04/13/24 05:07 975 mg ONCE ONE Administration Medical Decision Making Medical Decision Making MDM Narrative: 29 yo male with no PMH not on thinners here with c/o pain located in area he feels he has a growing lump he has a normal neuro exam he is very concerned about this and it is bothersome to him. I do not feel there is anything there but he notes a change. I think he will need a CT head to reassure him about a mass. I have low susp his headache is mild normal neuro exam. He is very athletic and fit suspect his HR and BP is due to that he denies GI loss or dizziness with standing. Differential Diagnosis Differential Diagnoses: The differential diagnosis associated with the presentation includes tension headache anxiety mass Admission/Observation Consideration of admission/observation: Escalation of care including admission/observation considered negative workup stable for DC Independent Interpretation I performed an independent interpretation of an: CT Scan (normal ) Radiology Impression Discussion of test interpretation with radiology: I have reviewed the radiologist's reading. External Record Review External record reviewed: Office record Chronic Conditions Patient?s care impacted by: Other Discharge Plan Discharge Clinical Impression: Headache Qualifiers: Headache type: unspecified Headache chronicity pattern: acute headache Intractability: not intractable Qualified Code(s): R51.9 - Headache, unspecified Patient Disposition: Home, Self-Care Instructions: Acute Headache (ED) Additional Instructions: no acute findings on CT scan likely anatomy return for numbness, weakness, loss of vision or any other concerns rest and stay hydrated today FINDINGS: There is no evidence of acute intracranial hemorrhage or territorial infarction. No abnormal mass-effect or midline shift is seen. Rizzo to white matter differentiation is well preserved. No extra axial fluid collections. The ventricles are normal in size and configuration. There is no abnormal attenuation within the brain parenchyma. The soft tissues and osseous structures are normal. The sinuses and mastoid air cells are clear. CT/CT head/brain wo IV con IMPRESSION: No acute intracranial pathology. Prescriptions: No Action penicillin V potassium 500 mg tablet 500 mg PO BID 10 Days Qty: 20 0RF amoxicillin-pot clavulanate 875-125 mg tablet 1 tab PO Q12H Qty: 20 0RF ibuprofen 600 mg tablet 600 mg PO Q6H PRN (Reason: pain) Qty: 30 0RF acetaminophen [Tylenol Extra Strength] 500 mg tablet 500 mg PO Q6H PRN (Reason: pain) Qty: 30 0RF Stand Alone Forms: Work/School Release Print Language: Uzbek
[2024-04-13] MEDS: Acetaminophen 325 MG TABLET 975 MG PO (05:28)
[2024-04-13 07:05] VITALS: BP 107/45; PULSE 65; RESP 18; TEMP 36.8; O2SAT 98
== END 2024-04-13 07:06 | disposition home or self-care (01) ==
PROVIDERS: Emergency Provider Emergency Medicine
DX: R51.9 Headache, unspecified (principal)
CPT/HCPCS: 70450; 99284

== ENCOUNTER 2024-05-11 13:26 | Emergency (ER) | payer OTHER, SELFPAY ==
[2024-05-11 13:47] VITALS: BP 111/62; PULSE 60; RESP 18; TEMP 36.9; O2SAT 98; BMI 25.9
--- NOTE | 2024-05-11 13:49 | ED_ITS ---
HPI - Skin/Abscess/Foreign Bdy General Chief complaint: Skin/Abscess/Foreign Body Stated complaint: Cyst Time Seen by Provider: 05/11/24 14:02 Source: patient and RN notes reviewed Mode of arrival: ambulatory Limitations: no limitations History of Present Illness ED Provider: Terri Heard PA-C HPI narrative: This is a 29-year-old male who presents emergency department with complaints of forehead swelling. Patient states that he attempted to pop a pimple on his forehead, however states that he woke this morning and felt as though his forehead was swollen. Denies any fevers or chills. No chest pain or shortness for breath. Denies history of similar symptoms in the past. Other complaints or concerns at this time. Onset (ago): day(s) Location: face Severity: mild Pain Consistency: constant Relieving factors: none Exacerbating factors: none Context: none Associated symptoms: denies other symptoms Treatments prior to arrival: none Related Data Previous Rx's ?Medication ?Instructions ?Recorded penicillin V potassium 500 mg 500 mg PO BID 10 days #20 tabs 02/07/24 tablet amoxicillin 875 mg-potassium 1 tab PO Q12H #20 tabs 02/08/24 clavulanate 125 mg tablet acetaminophen 500 mg tablet 500 mg PO Q6H PRN pain #30 tabs 02/09/24 (Tylenol Extra Strength) ibuprofen 600 mg tablet 600 mg PO Q6H PRN pain #30 tabs 02/09/24 cephalexin 250 mg capsule 250 mg PO QID 7 days #28 caps 05/11/24 doxycycline hyclate 100 mg capsule 100 mg PO BID 7 days #14 caps 05/11/24 Allergies Allergy/AdvReac Type Severity Reaction Status Date / Time No Known Allergies Allergy Verified 05/11/24 13:50 Review of Systems Review of Systems: Yes all other systems are reviewed and are negative Constitutional: Constitutional: Reports as per [facility] Past Medical History Medical History No known health problems Social History Social History (Updated 04/13/24 @ 05:29 by Honey Levin DO) Patient Tobacco Use Status: Never used Tobacco Advance Directives: No Advance Directives Information Provided: No Do you have a plan to hurt others: No Plan Physical Exam Vital Signs: Vital Signs: Last Vital Signs Temp 98.4 F 08/30/24 15:12 Pulse 71 05/11/24 15:12 Resp 18 05/11/24 15:12 BP 115/70 05/11/24 15:12 Pulse Ox 98 05/11/24 15:12 O2 Del Method Room Air 05/11/24 15:12 BMI result Body Mass Index 25.9 Const: General: cooperative, comfortable and no acute distress Orientation/consciousness: patient oriented x3 Limitations: no limitations HEENT: Head: Yes normal to inspection, Yes normocephalic and Yes atraumatic Ears: hearing grossly normal bilaterally General nose exam: Normal external nose present Face and sinus: Yes normal facial exam Mouth: Normal oral and palatal mucosa present, oropharynx normal and moist mucous membranes Throat: Yes posterior oropharynx normal Eyes: General: appearance normal, both eyes and all related structures Eyelids: Yes eyelids normal Conjunctivae: conjunctivae normal Sclerae: sclerae normal Pupils: Equal, round and reactive pupils present EOM: EOMs intact bilaterally Neck: Neck: Yes normal visual inspection, Yes full ROM and Yes no lymphadenopathy Lymphatic: no lymphadenopathy noted Chest: Chest palpation & inspection: normal inspection of the chest Resp: Effort & Inspection: normal respiratory effort and able to speak in complete sentences Auscultation: clear to auscultation bilaterally, no crackles, no rales, no rhonchi and no wheezes Cardio: Rate: regular rate Rhythm: regular rhythm Heart sounds: S1 normal heart sound present and S2 normal heart sound present GI: Inspection: Yes normal to inspection Skin: Other: Forehead with 2 mm erythematous papule, with mild surrounding erythema, no warmth. Patient has mild swelling to the left side of his forehead, no erythema or warmth noted region. General skin exam: no rashes or lesions noted Trauma: no lacerations or abrasions Wounds: no wounds Neuro: General: patient oriented x3 and moves all extremities Cranial nerves: Yes Equal, round and reactive pupils present Extrem: General: Yes normal to inspection Right upper extremity: normal to inspection Left upper extremity: normal to inspection Right lower extremity: normal to inspection Left lower extremity: normal to inspection Course Course Course Narrative: This is a Rapid Medical Examination (RME) performed by Reji Felder PA-C in triage. Full HPI, ROS, assessment and treatment plan per primary provider in the Main ED. 29 yo male here for eval of painful bump to forehead and bridge of nose. reports popping a pimple on his forehead last night. woke up with increased pain around the area, now extending down to bridge of nose with noted erythema. would like the area drained. Plan: further eval by main ed provider Medical Decision Making Medical Decision Making MDM Narrative: this is a 29-year-old male who presents emergency department with complaints of forehead swelling after attempting to pop a pimple yesterday. On arrival, vital signs within normal limits. He is afebrile, nontoxic-appearing. Discussed the importance of not picking at pimples on face as this can be very harmful. He now is reporting some pain and swelling into his forehead, requiring antibiotics. Patient discharged on doxycycline and Keflex. Given strict return precautions. He understands and agrees with plan. Patient stable for discharge. Differential Diagnosis Differential Diagnoses: The differential diagnosis associated with the presentation includes Cellulitis, pustule, abscess, localized reaction Discharge Plan Discharge Clinical Impression: Cellulitis Patient Disposition: Home, Self-Care Instructions: Cellulitis (ED) Additional Instructions: You were seen in the emergency department due to a skin infection. Please take prescribed antibiotics as directed. Finish the entire course even if you are feeling better. You may apply ice to the area as this can help reduce swelling. Please be advised that doxycycline is an antibiotic that can cause you to be more sensitive to the sun, please wear appropriate sun protection. You may also apply warm compresses as this will draw the infection. Ibuprofen and Tylenol can help with pain. If any new or worsening symptoms occur including but not limited to fevers, chills, changes in vision, headaches, body aches, please return for re- evaluation. Prescriptions: New doxycycline hyclate 100 mg capsule 100 mg PO BID 7 Days Qty: 14 0RF cephalexin 250 mg capsule 250 mg PO QID 7 Days Qty: 28 0RF No Action penicillin V potassium 500 mg tablet 500 mg PO BID 10 Days Qty: 20 0RF amoxicillin-pot clavulanate 875-125 mg tablet 1 tab PO Q12H Qty: 20 0RF ibuprofen 600 mg tablet 600 mg PO Q6H PRN (Reason: pain) Qty: 30 0RF acetaminophen [Tylenol Extra Strength] 500 mg tablet 500 mg PO Q6H PRN (Reason: pain) Qty: 30 0RF Interventions: ED Discharge Assessment Last Done: 05/11/24 15:12 Discharge Date/Time: 05/11/24 15:13 Print Language: Uzbek
[2024-05-11 14:00] VITALS: BP 115/70; PULSE 71; RESP 18; TEMP 36.9; O2SAT 98
[2024-05-11 15:12] VITALS: BP 115/70; PULSE 71; RESP 18; TEMP 36.9; O2SAT 98
== END 2024-05-11 15:13 | disposition home or self-care (01) ==
PROVIDERS: Emergency Provider Emergency Medicine
DX: L03.811 Cellulitis of head [any part, except face] (principal)
CPT/HCPCS: 99283

== ENCOUNTER 2024-05-17 17:37 | Emergency (ER) | payer OTHER, SELFPAY ==
[2024-05-17 17:52] VITALS: BP 111/66; PULSE 86; RESP 16; TEMP 36.9; O2SAT 98; BMI 24.9
--- NOTE | 2024-05-17 17:52 | ED_ITS ---
HPI - Skin/Abscess/Foreign Bdy General Chief complaint: Wound/Laceration Stated complaint: ? abscess on forehead Time Seen by Provider: 05/17/24 17:56 Source: patient Mode of arrival: ambulatory Limitations: no limitations History of Present Illness ED Provider: Ramana Selby PA-C HPI narrative: 29 yo male presents to the ER for evaluation of an abscess to his forehead for the last 6 days. He states it started small and has gotten bigger. He is unable to pop it himself and wants it drained. it is not red or warm to touch. no other lesions. no drainage from the site complaint: lesion Onset (ago): day(s) Location: face Pain Consistency: intermittent Exacerbating factors: palpation Context: none Associated symptoms: denies other symptoms Treatments prior to arrival: attempted to drain pus at home Related Data Previous Rx's ?Medication ?Instructions ?Recorded penicillin V potassium 500 mg 500 mg PO BID 10 days #20 tabs 02/07/24 tablet amoxicillin 875 mg-potassium 1 tab PO Q12H #20 tabs 02/08/24 clavulanate 125 mg tablet acetaminophen 500 mg tablet 500 mg PO Q6H PRN pain #30 tabs 02/09/24 (Tylenol Extra Strength) ibuprofen 600 mg tablet 600 mg PO Q6H PRN pain #30 tabs 02/09/24 cephalexin 250 mg capsule 250 mg PO QID 7 days #28 caps 05/11/24 doxycycline hyclate 100 mg capsule 100 mg PO BID 7 days #14 caps 05/11/24 Allergies Allergy/AdvReac Type Severity Reaction Status Date / Time No Known Allergies Allergy Verified 05/17/24 17:54 Review of Systems Review of Systems: Yes all other systems are reviewed and are negative [facility] Past Medical History Medical History No known health problems Social History Social History (Updated 04/13/24 @ 05:29 by Honey Levin DO) Patient Tobacco Use Status: Never used Tobacco Advance Directives: No Advance Directives Information Provided: No Do you have a plan to hurt others: No Plan Physical Exam Vital Signs: Vital Signs: Last Vital Signs Temp 98.4 F 05/17/24 18:20 Pulse 87 05/17/24 18:20 Resp 16 09/05/24 18:20 BP 110/87 05/17/24 18:20 Pulse Ox 98 05/17/24 17:52 O2 Del Method Room Air 05/17/24 18:20 BMI result Body Mass Index 24.9 Appearance: Alert. Oriented X3. No acute distress. HEENT: 1cm mobile mass on the forehead without overlying erythema CVS: Normal heart rate and rhythm. Pulses normal. Respiratory: No respiratory distress. Skin: Skin warm and dry. Normal skin color. Normal skin turgor. No rashes. Extremities: normal inspection x4 Neuro: Oriented X 3. grossly normal Medical Decision Making Medical Decision Making MDM Narrative: 29 yo male presenting for evaluation of an abscess on his forehead for the last 1 week. area is soft, mobile and minimally tender. more c/w a cyst. no evidence of inflammation or active infection. no role for I&D today. recommending evaluation for excision by associate professor of literature. no need for abx at this time. stable for d/c with outpatient follow up Differential Diagnosis Differential Diagnoses: The differential diagnosis associated with the presentation includes lipoma, cyst, abscess, pimple External Record Review External record reviewed: Prior outpatient labs Prescription Management I considered prescription management with: Antibiotic Critical Care Time Critical Care Time Critical Care Time: No Discharge Plan Discharge Clinical Impression: Dermoid cyst of forehead Patient Disposition: Home, Self-Care Instructions: Excision of Skin Lesion (DC) Additional Instructions: call [facility] in [address] [place], [place] [id number] use warm compresses to the area do not try to drain or pop it If you develop new or worsening symptoms call 911 or come back to the ER for further evaluation. Prescriptions: No Action penicillin V potassium 500 mg tablet 500 mg PO BID 10 Days Qty: 20 0RF amoxicillin-pot clavulanate 875-125 mg tablet 1 tab PO Q12H Qty: 20 0RF ibuprofen 600 mg tablet 600 mg PO Q6H PRN (Reason: pain) Qty: 30 0RF acetaminophen [Tylenol Extra Strength] 500 mg tablet 500 mg PO Q6H PRN (Reason: pain) Qty: 30 0RF doxycycline hyclate 100 mg capsule 100 mg PO BID 7 Days Qty: 14 0RF cephalexin 250 mg capsule 250 mg PO QID 7 Days Qty: 28 0RF Interventions: ED Discharge Assessment Last Done: 05/17/24 18:20 Discharge Date/Time: 05/17/24 18:23 Print Language: Egyptian
[2024-05-17 18:20] VITALS: BP 110/87; PULSE 87; RESP 16; TEMP 36.9
== END 2024-05-17 18:23 | disposition home or self-care (01) ==
LOC: HO.ED 18:08
PROVIDERS: Emergency Provider Emergency Medicine
DX: D36.7 Benign neoplasm of other specified sites (principal)
CPT/HCPCS: 99282

== ENCOUNTER 2024-05-30 08:47 | Outpatient (REF) | payer OTHER, SELFPAY | END 2024-05-30 08:48 | disposition home or self-care (01) | LOC: HO.LNP 08:47 | PROVIDERS: Visit Provider Surgery | DX: D23.39 Other benign neoplasm of skin of other parts of face (principal) | CPT/HCPCS: 11442; 88304; 88305; 99202 ==

== ENCOUNTER 2024-05-30 08:47 | Outpatient (AMB) | payer OTHER, SELFPAY ==
--- NOTE | 2024-05-30 08:47 | MHC.OFFVIS ---
Vital Signs 05/30/24 08:48 Height 5 ft 8 in Weight 167 lb BMI 25.4 Intake Visit Reasons: cyst forehead Intake Note: This patient presents for cyst of the forehead. Patient c/o; reports completed 2 rounds of antibiotics. 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 He had noticed this small lump on his forehead for over a month and this had become swollen and inflamed. He went to the ER twice for this. He was given antibiotics. He had noticed improvement of the redness but the lump had persisted. He denies any drainage. [facility] Medical History No known health problems Social History Patient Tobacco Use Status: Never used Tobacco Review of Systems Const Denies chills and Denies fever(s) Card Denies chest pain, Denies dyspnea and Denies dyspnea on exertion Resp Denies cough, Denies dyspnea and Denies dyspnea on exertion GI Denies hematochezia and Denies change in bowel habits Denies hematuria and Denies difficulty urinating Musc Denies back pain and Denies limited range of motion Neuro Denies focal weakness and Denies convulsions Psych Denies depression and Denies mood swings Physical Exam Vital Signs: BMI result Body Mass Index 25.4 Const General: comfortable and no acute distress Orientation/consciousness: patient oriented x3 HEENT Other: Cystic mass on the forehead about 1.3 cm in diameter, well-defined Neck Neck: Yes no lymphadenopathy Resp Auscultation: clear to auscultation bilaterally Cardio Rhythm: regular rhythm GI Palpation (GI): Soft to palpation, nontender and no guarding Neuro General: patient oriented x3 Office Procedures Excision Details: He was in reclining position. The area of the cyst was prepped and draped. Lidocaine 1% was used for local anesthesia. I made an incision on the skin overlying this cyst using blade 15. This was carried down through the full-thickness of the skin and immediately we were able to visualize what appeared to be hypergranulation tissue that may have been remnants of a ruptured cyst. I excised this off of the rest of the subcutaneous layer circumferentially. This was sent as specimen. I irrigated and closed the incision with full-thickness nylon 5 0 simple interrupted sutures. Steri-Strips were applied. The procedure was completed. There was minimal blood loss. [id number] face/ear/eyelid/nose/lip/mucous membrane 1.1cm-2cm Procedure code (CPT) selection complete Assessment & Plan Assessment & Plan (1) Dermoid cyst of forehead: Code(s): D23.39 - Other benign neoplasm of skin of other parts of face Category: Medical Plan: He has what appears to be an epidermal inclusion cyst. He wanted this removed. I explained the technique of the procedure. I reviewed the risks, benefits, and alternatives. He had given consent. Excision was done in the office today under local anesthesia. He tolerated procedure well. There were no immediate complications. He was given wound care instructions and will be seen in the office for removal sutures. Coding Level of Care Code New Pt Level 3 (05400) Diagnoses Dermoid cyst of forehead D23.39 CPT Codes Face/Ear/Eyelid/Nose/Lip/Mucous Membrane - CPT: 57845-[id number] face/ear/eyelid/nose/lip/mucous membrane 1.1cm-2cm ([id number])
[2024-05-30 08:48] VITALS: BMI 25.4
== END 2024-05-30 09:28 | disposition home or self-care (01) ==
PROVIDERS: Visit Provider Surgery
DX: D23.39 Other benign neoplasm of skin of other parts of face (principal)
CPT/HCPCS: 11442; 99203

== ENCOUNTER 2024-06-06 15:32 | Outpatient (AMB) | payer OTHER, SELFPAY ==
--- NOTE | 2024-06-06 15:34 | MHC.OFFVIS ---
Vital Signs 06/06/24 15:43 Height 5 ft 8 in Weight 167 lb 0.002 oz BMI 25.4 Intake Visit Reasons: s/p cyst forehead Intake Note: This patient presents for follow-up assessment status post excision dermoid cyst of forehead. Pt c/o; reports he had some swelling last week but it has improved. 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 He tolerated procedure well. Currently denies significant complaints. [facility] Medical History No known health problems Surgical History History of dermoid cyst excision (~05/30/24) Social History Patient Tobacco Use Status: Never used Tobacco Review of Systems Const Denies chills and Denies fever(s) Physical Exam Vital Signs: BMI result Body Mass Index 25.4 Const General: comfortable and no acute distress HEENT Other: Excision site on the forehead this well healed, not infected Assessment & Plan Assessment & Plan (1) Dermoid cyst of forehead: Code(s): D23.39 - Other benign neoplasm of skin of other parts of face Category: Medical Plan: Status post excision. His sutures were removed. The incision is well healing. I applied Steri-Strips on this His path report shows granulation tissue consistent with a ruptured epidermal cyst. He can follow up on a p.r.n. basis. Coding Level of Care Code Global (09557) Diagnoses Dermoid cyst of forehead D23.39
[2024-06-06 15:43] VITALS: BMI 25.4
== END 2024-06-06 16:42 | disposition home or self-care (01) ==
PROVIDERS: Visit Provider Surgery
DX: D23.39 Other benign neoplasm of skin of other parts of face (principal)
CPT/HCPCS: 99024

== ENCOUNTER → 2024-06-06 15:32 | Outpatient (BNVA) | payer OTHER, SELFPAY | PROVIDERS: Visit Provider Surgery | DX: D23.39 Other benign neoplasm of skin of other parts of face (principal) | CPT/HCPCS: 99212 ==

== ENCOUNTER 2024-07-29 07:39 | Emergency (ER) | payer OTHER, SELFPAY ==
[2024-07-29 07:48] VITALS: BP 113/45; PULSE 76; RESP 19; TEMP 36.5; O2SAT 98; BMI 25.8
--- NOTE | 2024-07-29 07:57 | ED_ITS ---
HPI - General Adult General Chief complaint: General Medical Stated complaint: Strep throat Time Seen by Provider: 07/29/24 07:57 Source: patient Mode of arrival: ambulatory Limitations: no limitations History of Present Illness ED Provider: ATUL DOYLE PA-C HPI narrative: 29 year old male with pmhx significant for recurrent strep pharyngitis and [employer] presents to the ED today for evaluation of sore throat on waking this morning. Admits to associated odynophagia. No dyshagia. Reports history of strep throat at least once a year. States this feels similar. Endorses anxiety surrounding the situation as the last time he was diagnosed with strep throat (01/2024) he had subsequent [employer] requiring aspiration. He was not admitted to the hospital at that time. Denies headache, dizziness, fever, chills, cough, vomiting. No known sick contacts. Vaccinations UTD. Received this year's flu vaccine yesterday. Related Data Previous Rx's ?Medication ?Instructions ?Recorded penicillin V potassium 500 mg 500 mg PO BID 10 days #20 tabs 02/07/24 tablet amoxicillin 875 mg-potassium 1 tab PO Q12H #20 tabs 02/08/24 clavulanate 125 mg tablet acetaminophen 500 mg tablet 500 mg PO Q6H PRN pain #30 tabs 02/09/24 (Tylenol Extra Strength) ibuprofen 600 mg tablet 600 mg PO Q6H PRN pain #30 tabs 02/09/24 cephalexin 250 mg capsule 250 mg PO QID 7 days #28 caps 05/11/24 doxycycline hyclate 100 mg capsule 100 mg PO BID 7 days #14 caps 05/11/24 benzocaine 15 mg-menthol 2.6 mg 1 snow mucous membrane Q2-4H PRN 07/29/24 lozenges (Cepacol Sore Throat sore throat #16 ea (benzocaine-menthol)) penicillin V potassium 500 mg 500 mg PO BID 10 days #20 tabs 07/29/24 tablet Allergies Allergy/AdvReac Type Severity Reaction Status Date / Time No Known Allergies Allergy Verified 07/29/24 07:49 Review of Systems Review of Systems: Constitutional: No fever, chills, fatigue, night sweats, weight changes ENT/Mouth: No ear pain, hearing loss, nasal congestion, sinus pain, rhinorrhea, +sore throat, +odynophagia, No dysphagia Eyes: No eye pain, swelling, redness, vision changes, discharge Cardio: No chest pain, palpitations, [place], orthopnea, peripheral edema Pulm: No SOB, cough, sputum, wheezing, dyspnea, hemoptysis GI: No nausea, vomiting, hematemesis, abdominal pain, diarrhea, constipation, hematochezia, melena : No irregular bleeding, dysuria, frequency, urgency, hesitancy, hematuria, flank pain MSK: No back pain, neck pain, joint pain, myalgias Skin: No lesions, rashes Neuro: No weakness, numbness, paresthesias, LOC, dizziness, headache All other systems reviewed and are negative. [facility] Past Medical History Attestation statement: The following information was validated with the patient. Source: old records reviewed and nursing notes reviewed Medical History No known health problems Surgical History History of dermoid cyst excision (~05/30/24) Social History Social History Patient Tobacco Use Status: Never used Tobacco Advance Directives: No Advance Directives Information Provided: Yes Do you have a plan to hurt others: No Plan Physical Exam ED Vital Signs: Vital Signs - 24 hr 07/29/24 07:48 Temperature 97.7 F Pulse Rate 76 Respiratory Rate 19 Blood Pressure 113/45 L Pulse Oximetry 98 Oxygen Delivery Method Room Air BMI result Body Mass Index 25.8 Vital signs stable. Afebrile. Not hypoxic. General: Well appearing, in no acute distress. Skin: Warm, dry, intact. No rashes or lesions. Head: Normocephalic, atraumatic. EENT: Hearing is intact b/l. Conjunctiva clear. PERRLA. Moist mucous membranes. Posterior oropharynx erythematous with tonsillar exudates to left. No tonsillar hypertrophy. No peritonsillar masses. Uvula midline. Controlling secretions and speaking in complete sentences. Neck: + cervical lymphadenopathy Cardiac: Chest wall symmetric. RR Lungs: Normal respiratory effort without accessory muscle use. CTA bilaterally. Abdomen: Soft, non-tender, non-distended. No rebound tenderness or guarding. Positive BS x4. No splenomegaly Back: No midline spinous or paraspinal tenderness. No step off deformity. Ext: Upper and lower extremities atraumatic, without tenderness, deformity, swelling or erythema. Full ROM throughout. Neuro: AOx3. Normal speech. Psych: Appropriate mood and affect. Responds appropriately to questions. Course Course Course Narrative: 1008 -- patient tested negative for covid, flu, rsv, and strep throat. his physical exam and history is concerning for strep. will prescribe him penicillin. cepacol sent to pharmacy for sore throat. decadron given PO in ED with improvement in throat pain. Patient has remained stable throughout ED visit today. Discussed worrisome signs and symptoms and when to return to the ED. All questions answered at this time. Patient is agreeable with disposition and stable for discharge. Medications Administered Discontinued Medications Generic Name Dose Route Start Last Admin Trade Name Freq PRN Reason Stop Dose Admin Dexamethasone Sodium Phosphate 10 mg 07/29/24 08:44 07/29/24 08:55 Dexamethasone Sod Phosphate 10 Mg/Ml Vial IVPUSH 07/29/24 08:45 10 mg ONCE ONE Administration Medical Decision Making Medical Decision Making [facility] Narrative: 29 year old male with pmhx significant for recurrent strep pharyngitis and [employer] presents to the ED today for evaluation of sore throat on waking this morning. vital signs stable. febrile. not hypoxic. anterior cervical LAD. Posterior oropharynx erythematous with tonsilar exudates to left. No tonsillar hypertrophy. No peritonsillar masses. Uvula midline. Controlling secretions and speaking in complete sentences. skin w/d/i. Centor criteria 3. Differential diagnosis includes strep throat, viral syndrome. Unlikely mono, [employer], retropharyngeal abscess, dental abscess, epiglottitis. Plan for viral/ strep swabs, decadron, re-evaluation. Differential Diagnosis Differential Diagnoses: The differential diagnosis associated with the presentation includes as above. Admission/Observation Not indicated Lab Data [facility] Lab Attestation statement: I reviewed the patient's lab results. as above Labs: Lab Results 07/29/24 Range/Units 07:53 Influenza Type A (PCR) NEGATIVE (Negative) Influenza Type B (PCR) NEGATIVE (Negative) RSV RNA Qual (PCR) NEGATIVE (Negative) SARS-CoV-2 RNA (RT-PCR) NEGATIVE (Negative) S. pyogenes GrpA JEIMY Negative (Negative) External Record Review External record reviewed: Inpatient record Prescription Management I considered prescription management with: Pain Medication and Antibiotic (pen vk) Chronic Conditions Patient?s care impacted by: Other (recurrent strep) Social Determinants Patient?s care significantly limited by Social Determinants of Health including: Other Social Determinant of Health Critical Care Time Critical Care Time Critical Care Time: No Discharge Plan Discharge Clinical Impression: Acute streptococcal pharyngitis Patient Disposition: Home, Self-Care Instructions: Pharyngitis (ED), Strep Throat (ED) Additional Instructions: You were seen in the ED today for evaluation of sore throat. You tested negative for covid, flu, rsv, and strep throat. Your physical exam is concerning for strep throat so you will be treated for this. Penicillin is an antibiotic that has been sent to your pharmacy. Take this twice daily for the next 10 days to treat strep throat. Do not stop taking these antibiotics early or miss any doses as this may cause infection to return or worsen. Cepacol throat lozenges have been sent to your pharmacy to help with throat pain. You may also purchase [id number] chloraseptic spray to numb your throat. Take Tylenol and ibuprofen as needed for body aches or fevers. Make sure to change your toothbrush as this contains bacteria. Strep throat is contagious. If anyone else in your household is exhibiting symptoms, please advise them to come to the ED, urgent care, or to see their primary care provider. Follow up with your primary care provider this week. Return to the Emergency Department if you experience worsening or uncontrolled pain, tongue swelling, difficulty swallowing, change in your voice, difficulty breathing, fevers 100.4?F or greater, recurrent vomiting, development of a rash, or any other concerning symptoms. In the case of emergency, call 911.? Prescriptions: New Cepacol Sore Throat (chino-men) 15-2.6 mg lozenge 1 snow mucous membrane Q2-4H PRN (Reason: sore throat) Qty: 16 0RF penicillin V potassium 500 mg tablet 500 mg PO BID 10 Days Qty: 20 0RF No Action penicillin V potassium 500 mg tablet 500 mg PO BID 10 Days Qty: 20 0RF amoxicillin-pot clavulanate 875-125 mg tablet 1 tab PO Q12H Qty: 20 0RF ibuprofen 600 mg tablet 600 mg PO Q6H PRN (Reason: pain) Qty: 30 0RF acetaminophen [Tylenol Extra Strength] 500 mg tablet 500 mg PO Q6H PRN (Reason: pain) Qty: 30 0RF doxycycline hyclate 100 mg capsule 100 mg PO BID 7 Days Qty: 14 0RF cephalexin 250 mg capsule 250 mg PO QID 7 Days Qty: 28 0RF Stand Alone Forms: Work/School Release Print Language: Ghanaian
[2024-07-29 08:05] LABS: IDNOW Serial# 08D9AD1C; Strep A Nucleic Acid Negative (Negative)
[2024-07-29] MEDS: dexAMETHasone sod phosphate 10 MG/ML VIAL IVPUSH (08:55)
[2024-07-29 09:50] LABS: Influenza A PCR NEGATIVE (Negative); Influenza B PCR NEGATIVE (Negative); Resp Syncy Virus RNA Qual PCR NEGATIVE (Negative); SARS COV2 PCR INHOUSE NEGATIVE (Negative)
[2024-07-29 10:25] VITALS: BP 113/45; PULSE 76; RESP 19; TEMP 36.5; O2SAT 98
== END 2024-07-29 10:25 | disposition home or self-care (01) ==
PROVIDERS: Emergency Provider Emergency Medicine
DX: J02.0 Streptococcal pharyngitis (principal); Z79.899 Other long term (current) drug therapy; Z03.818 Encounter for observation for suspected exposure to other biological agents ruled out
CPT/HCPCS: 0241U; 87651; 96374; 99282; 99284; J1100